=== PATIENT | female | born 1990 | race Caucasian/White ===

== ENCOUNTER 2018-11-05 09:01 | Day surgery (SDC) | payer OTHER ==
[~2018-11-05] VITALS: Ht 160 cm; Wt 46.7 kg
[~2018-11-05 09:01] MED LIST: LR 1,000 ML IV ONE
[2018-11-05 09:31] LABS: HEMATOCRIT 38.5 % (36.0-47.0); HEMOGLOBIN 12.8 g/dl (12.0-15.5); MEAN CORPUSCULAR HEMOGLOBIN 30.3 pg (27.0-33.0); MEAN CORPUSCULAR HGB CONC 33.2 g/dl (32.0-36.5); MEAN CORPUSCULAR VOLUME 91.2 fl (80.0-96.0); PLATELET COUNT, AUTOMATED 197 10^3/uL (150-450); RED BLOOD COUNT 4.22 10^6/uL (4.00-5.40); WHITE BLOOD COUNT 7.3 10^3/uL (4.0-10.0)
[2018-11-05 09:43] LABS: URINE PREG TEST NEGATIVE (NEGATIVE)
[2018-11-05] MEDS ORDERED: OXYMETAZOLINE NASAL SPRAY (AFRIN) As Ordered ONE (11:52)
[2018-11-05] MEDS ORDERED: METHYLENE BLUE 0.5% (5MG/ML) 10 ML AMP (PROVAYBLUE)(Q9968 PER 1MG) As Ordered ONE (11:52)
[2018-11-05] MEDS ORDERED: LIDOCAINE W/EPINEPHRINE 1% 20ML VIAL As Ordered ONE (11:52)
[2018-11-05] MEDS ORDERED: LIDOCAINE 2% INJ 100 MG/5 ML SDV (FOR ANES.) As Ordered ONE (12:28)
[2018-11-05] MEDS ORDERED: fentaNYL 100 MCG/2 ML INJECTION (J3010) As Ordered ONE (12:28)
[2018-11-05] MEDS ORDERED: ROCURONIUM BROMIDE 50 MG/5 ML VIAL As Ordered ONE (12:28)
[2018-11-05] MEDS ORDERED: MIDAZOLAM INJ 2 MG/2 ML VIAL (J2250) As Ordered ONE (12:28)
[2018-11-05] MEDS ORDERED: PROPOFOL 200 MG/20 ML VIAL As Ordered ONE (12:28)
[2018-11-05] MEDS ORDERED: ONDANSETRON 4MG/2ML VIAL (J2405) As Ordered ONE (12:28)
[2018-11-05] MEDS ORDERED: dexameTHASONE 4 MG/ML 1ML VIAL (J1100) As Ordered ONE (12:29)
[2018-11-05] MEDS ORDERED: PHENYLephrine HCL 500 MCG/5 ML (100MCG/ML) SYRINGE (J2370) As Ordered ONE (12:35)
[2018-11-05] MEDS ORDERED: SUGAMMADEX SODIUM 500 MG/5 ML VIAL (BRIDION) As Ordered ONE (13:04)
[2018-11-05] MEDS ORDERED: IBUPROFEN 800 MG TAB PO PRN (13:30)
[2018-11-05] MEDS ORDERED: PERCOCET 5MG/325MG TAB PO PRN (13:45)
[2018-11-05] MEDS ORDERED: LR 1,000 ML IV SCH (13:45)
[2018-11-05] MEDS ORDERED: fentaNYL 100 MCG/2 ML INJECTION (J3010) IV PRN (13:45)
[2018-11-05] MEDS ORDERED: NORCO, ANEXSIA 5/325MG TABLET (HYDROcodone/ACETAMINOPHEN) PO PRN (13:45)
[2018-11-05 14:55] VITALS: BP 119/77
--- NOTE | 2018-11-06 13:56 | RO ---
DATE OF PROCEDURE: 11/05/2018 PREOPERATIVE DIAGNOSES: Deviated septum, chronic rhinitis. POSTOPERATIVE DIAGNOSES: Deviated septum, chronic rhinitis. PROCEDURE: Septoplasty, partial reduction inferior turbinates SURGEON: Deanrde Dobbins MD ACCOUNT SERVICES SPECIALIST: ANESTHESIA: INDICATIONS: This is a 28-year-old with a long history of nasal obstruction. PROCEDURE: Satisfactory general endotracheal anesthesia was administered, pharyngeal pack placed, and the nose was prepared for surgery by placing cotton soaked pledgets with Afrin solution in the nasal cavity bilaterally. 1% xylocaine with 1:100,000 epinephrine was used to inject the nasal septum and inferior turbinates. A Bayfield incision was made on the left side of the nose. A mucoperichondrial flap and envelope was created on the left side of the nasal septum and carried down to the junction of the bony and cartilaginous septum. This was then with an elevator, and an envelope was then created on the right side of the septum. A Lvi scissors was used to make a cut high in the perpendicular plate in the midportion of the vomer, and a central segment of the bony septum was resected. Next, with the round knife on the Vanderburgh elevator, a strip of cartilage was resected from the floor of the nose, mobilizing the quadrilateral cartilage and creating a swinging door. Then, a central segment of cartilaginous septum was resected, preserving a 1 cm dorsal and caudal strut. Double-action rongeur was used to take down deflected portions of the perpendicular plate, as well. Finally, the maxillary crest spur was taken down after elevating mucoperiosteum off both sides of it with a chisel. A segment of the resected cartilage was morselized and placed back into the septal envelope. The incision was closed using an interrupted #5-0 chromic suture. Then, a #4-0 plain suture was placed in a [id number] fashion through the two leaves of mucoperichondrium to appose them. ADDENDUM: Note that the majority of the obstruction was at the perpendicular plate and vomerine junction, and the bony septum was the offending part of her airway. This was deflected way into the left nasal cavity. Next, the inferior turbinates were medially infractured. A #15 blade was used to make an incision on the anterior tip of the inferior turbinate. With a Vanderburgh elevator, a mucoperiosteal tunnel was created on the medial side of the turbinate. Then, the microdebrider with a 2.9 mm blade was inserted into the tunnel, and the underlying turbinate bone was weakened and partially resected using the microdebrider. Then, the turbinate was laterally outfractured. The posteroinferior tip of the turbinate was then cauterized with suction cautery. Finally, Apodaca splints were placed into the nose and sewn to the columella with a #2-0 Prolene suture. The pharyngeal pack, which had been placed at the beginning of the procedure was removed, the throat was suctioned. The patient was then awakened, extubated, and sent to recovery in satisfactory condition.
== END 2018-11-05 15:13 | disposition home or self-care (01) ==
LOC: M SDC 09:01
PROVIDERS: ATTEND Specialist
DX: J34.2 Deviated nasal septum (principal); J31.0 Chronic rhinitis; Z88.0 Allergy status to penicillin
CPT/HCPCS: 30140; 30520; 36415; 84703; 85027; 88300; J1100; J2250; J2370; J2405; J3010; Q9968

== ENCOUNTER → 2020-02-14 | Outpatient (CLI) | payer OTHER | LOC: M LAB 14:36 | PROVIDERS: ATTEND Obstetrics & Gynecology | DX: Z34.00 Encounter for supervision of normal first pregnancy, unspecified trimester (principal); Z36.89 Encounter for other specified antenatal screening ==

== ENCOUNTER 2020-03-04 03:26 | Emergency (ER) | payer OTHER ==
[~2020-03-04 03:26] MED LIST changes: -LR 1,000 ML IV ONE; +MORPHINE 4 MG/ML 1ML VIAL/SYRINGE (J2270) As Ordered ONE
== END 2020-03-04 04:30 | disposition home or self-care (01) ==
LOC: M ED 03:26
DX: O99.89 Other specified diseases and conditions complicating pregnancy, childbirth and the puerperium (principal); H65.02 Acute serous otitis media, left ear; O99.333 Smoking (tobacco) complicating pregnancy, third trimester; F17.210 Nicotine dependence, cigarettes, uncomplicated; Z3A.37 37 weeks gestation of pregnancy; Z88.0 Allergy status to penicillin; Z88.8 Allergy status to other drugs, medicaments and biological substances
CPT/HCPCS: 96374; 99282; J2270

== ENCOUNTER 2020-03-10 19:45 | Inpatient (IN) | payer OTHER ==
[2020-03-10] MEDS ORDERED: FENTANYL 2MCG/ML ROPIVACAINE 0.2% IN 0.9% NACL 100ML IVBAG ONE (20:30)
[2020-03-10] MEDS ORDERED: PROMETHAZINE INJ 25 MG/ML VIAL (J2550) ONE (20:30)
[2020-03-10] MEDS ORDERED: BUTORPHANOL 2 MG/ML INJ (J0595) ONE (20:30)
[2020-03-10] MEDS ORDERED: ceFAZolin 2 GM/D5W 50 ML IV BAG (J0690 PER 500MG) ONE (20:30)
[2020-03-10] MEDS ORDERED: OXYTOCIN 30 UNITS IN 0.9% NaCl 500ML IV BAG (J2590) ONE (20:30)
[2020-03-10] MEDS ORDERED: ceFAZolin 2 GM/D5W 50 ML IV BAG (J0690 PER 500MG) As Ordered ONE (20:36)
[2020-03-10] MEDS ORDERED: PROMETHAZINE INJ 25 MG/ML VIAL (J2550) As Ordered ONE (20:37)
[2020-03-10] MEDS ORDERED: BUTORPHANOL 2 MG/ML INJ (J0595) As Ordered ONE (20:37)
[2020-03-10] MEDS ORDERED: FENTANYL 2MCG/ML ROPIVACAINE 0.2% IN 0.9% NACL 100ML IVBAG As Ordered ONE (20:58)
[2020-03-10] MEDS ORDERED: OXYTOCIN 30 UNITS IN 0.9% NaCl 500ML IV BAG (J2590) As Ordered ONE (21:03)
[2020-03-11] MEDS ORDERED: IBUPROFEN 800 MG TAB As Ordered ONE ×3 (00:39→21:14)
[2020-03-11] MEDS ORDERED: IBUPROFEN 800 MG TAB ONE ×3 (00:39→09:14)
[2020-03-12] MEDS ORDERED: IBUPROFEN 800 MG TAB ONE (08:27)
[2020-03-12] MEDS ORDERED: IBUPROFEN 800 MG TAB As Ordered ONE (08:27)
[2020-03-12] MEDS ORDERED: ACETAMINOPHEN 500 MG TAB As Ordered ONE (11:27)
[2020-03-12] MEDS ORDERED: ACETAMINOPHEN 500 MG TAB ONE (11:27)
[2020-03-13] MEDS ORDERED: IBUPROFEN 800 MG TAB ONE (07:29)
[2020-03-13] MEDS ORDERED: IBUPROFEN 800 MG TAB As Ordered ONE (07:46)
--- NOTE | 2020-05-11 11:59 | HPE ---
DATE OF ADMISSION: 03/10/2020 REASON FOR ADMISSION: Spontaneous rupture of membranes. HISTORY OF PRESENT ILLNESS: Mrs. Humphries is a 30-year-old 1 who presents at 37 weeks with reports of leakage of clear fluid that occurred at approximately 9 a.m. this morning and now is experiencing contractions that have increased in intensity and frequency. She reports active movement. She denies any vaginal bleeding. Her course has been remarkable for initiating care at [facility]. She then transferred care to [place] after her deployed and has since re-presented to the local area and was in the process of establishing care locally. PAST MEDICAL HISTORY: History of substance abuse. PAST SURGICAL HISTORY: 1. Has had a colon biopsy. 2. Appendectomy. MEDICATIONS: None. ALLERGIES: PENICILLIN, which caused a rash, and FLEXERIL. SOCIAL HISTORY: She denies any alcohol, tobacco, or drug use in her . OBSTETRICAL HISTORY: She is a 1. PHYSICAL EXAMINATION: Her vital signs are stable. She is afebrile. She has a category 1 heart rate tracing with contractions on tocometer. Her general appearance is well-appearing, no acute distress. Her lungs are clear to auscultation bilaterally. Cardiovascular: Heart regular rate and rhythm. Her abdomen is gravid, nontender. Cervical exam: She is 1 cm dilated, 100% effaced, -1 station, grossly ruptured, Nitrazine positive. ASSESSMENT: 1. Mrs. Humphries is a 30-year-old 1 at 37 weeks with spontaneous rupture of membranes. 2. Reassuring status. PLAN: 1. Admit to labor and delivery. Complete blood count (CBC), rapid plasma reagin (RPP) type and screen. 2. Anticipate spontaneous vaginal delivery. [facility]
--- NOTE | 2020-05-14 15:50 | DN ---
Date of Delivery: 03/11/2020 Time of : 0009 Gender: Female Apgars: 9 and 9 Weight: 6 pounds 5 ounces, 2850 grams Anesthesia: Epidural. Lacerations: None. Estimated Blood Loss: 300 mL. Counts: Laparotomy sponges a count of 4 prior and after delivery. Description of Delivery: Mrs. Humphries a 30-year-old 1, now para 1, had a spontaneous vaginal delivery of a live born female infant. Apgars 9 and 9. Weight was 6 pounds 5 ounces, 2850 grams. Head was delivered left occiput anterior (MANOLO) over an intact peritoneum followed by delivery of right anterior shoulder, left posterior shoulder, and corpus. The infant was handed to mom with a good cry. Cord was clamped x2. Cord was cut by the father of the baby under my direction. Placenta was then drained and delivered grossly intact. A premixed bag of 500 mL of normal saline was bolused along with 30 units of Pitocin. The uterus was firm. On inspection, the cervix, vagina, and perineum were grossly intact and hemostatic. Mom and baby in recovery in stable condition. The couple decided to name their daughter INDERJIT
[2020-05-17 14:38] LABS: HEMATOCRIT 37.4 % (36.0-47.0); HEMOGLOBIN 11.8 g/dl (12.0-15.5); MEAN CORPUSCULAR HEMOGLOBIN 27.8 pg (27.0-33.0); MEAN CORPUSCULAR HGB CONC 31.6 g/dl (32.0-36.5); PLATELET COUNT, AUTOMATED 205 10^3/uL (150-450); RED BLOOD COUNT 4.25 10^6/uL (4.00-5.40); WHITE BLOOD COUNT 14.4 10^3/uL (4.0-10.0)
== END 2020-03-13 07:30 | disposition home or self-care (01) | DRG 807 ==
LOC: M LDI 19:45
PROVIDERS: ADMIT Obstetrics & Gynecology; ATTEND Obstetrics & Gynecology
PROC: 10E0XZZ Delivery of Products of Conception, External Approach (ICD-10-PCS; principal; 2020-03-11)
DX: O80 Encounter for full-term uncomplicated delivery (principal); Z37.0 Single live birth; Z3A.37 37 weeks gestation of pregnancy; Z88.0 Allergy status to penicillin; Z88.8 Allergy status to other drugs, medicaments and biological substances